=== PATIENT | female | born 1975 | race Caucasian/White ===

== ENCOUNTER 2018-10-24 18:08 | Emergency (ER) | payer MEDICARE, OTHER ==
[~2018-10-24] VITALS: Ht 167.6 cm; Wt 84.4 kg
--- NOTE | 2018-10-24 19:03 | ED Integumentary General ---
General Chief Complaint: Skin/Wound Problems Stated Complaint: LT SHOULDER SORE Nursing Triage Note: LEFT UPPER SHOULDER PIMPLE AREA FROM A TATTOO A COUPLE OF WEEKS AGO. PT CHAMGED FROM DOXY TO BACTRIM TODAY PER THE CLINIC AND MRSA COMING BACK ON THE WOUND CULTURE. Source: patient History of Present Illness Date Seen by Provider: Oct 24, 2018 Time Seen by Provider: 18:19 Initial Comments 43-year-old female presenting with complaints of swelling and tenderness to a sore on her left anterior shoulder. She had been seen by her clinic doctor for this already and was on doxycycline initially for it. She received a call today being told that it was MRSA and they switched her to Bactrim. She's had one dose of that. However her bra strap continues to rub on this area and irritate it. It is scratching it and making it bleed. She had a small amount of drainage from it and it is making it more irritated. Due to the pain and the drainage as well as being told that it was MRSA, she was concerned that it might need to be opened or drained. Allergies and Home Medications Allergies Coded Allergies: Penicillins (Verified Allergy, Unknown, 10/24/18) Home Medications Mupirocin 22 Gm Oint...g., 1 GM TP BID apply small amount to wound on shoulder twice a day for 10 days to treat for MRSA. Prescribed by: LALO PORRAS on 10/24/181905 Tramadol HCl 50 Mg Tablet, 50 MG PO Q6H PRN for PAIN-SEVERE Prescribed by: LALO PORRAS on 10/24/181905 Patient Home Medication List Home Medication List Reviewed: Yes Review of Systems Review of Systems Constitutional: No chills, No diaphoresis, No fever EENTM: no symptoms reported Respiratory: no symptoms reported Cardiovascular: no symptoms reported Gastrointestinal: no symptoms reported Genitourinary: no symptoms reported Musculoskeletal: other (pain around the left shoulder over the infection is located on the skin) Skin: see HPI Psychiatric/Neurological: No Symptoms Reported Past Sidvbpr-Qskigy-Vcwziz Hx Past Med/Social Hx: Reviewed Nursing Past Med/Soc Hx Patient Social History Alcohol Use: Denies Use Recreational Drug Use: No Smoking Status: Current Everyday Smoker Type Used: Cigarettes 2nd Hand Smoke Exposure: Yes Recent Foreign Travel: No Contact w/Someone Who Travel: No Recent Infectious Disease Expo: No Recent Hopitalizations: No Physical Abuse: No Sexual Abuse: No Mistreated: No Fear: No Seasonal Allergies Seasonal Allergies: No Past Medical History Orthopedic, Tubal Ligation Respiratory: Yes Asthma Cardiac: No Neurological: No Female Reproductive Disorders: Menstrual Problems [employer] History: Tubal Ligation Genitourinary: No Gastrointestinal: No Musculoskeletal: No Endocrine: No HEENT: No Cancer: No Psychosocial: Yes Anxiety Integumentary: No Blood Disorders: Yes (ANEMIA) Physical Exam Vital Signs Vital Signs - First Documented 10/24/18 10/24/18 18:20 19:16 Temp 99.0 Pulse 90 Resp 18 B/P (MAP) 123/86 (98) Pulse Ox 99 O2 Delivery Room Air Capillary Refill : Less Than 3 Seconds General Appearance: WD/WN, no apparent distress Neck: non-tender, full range of motion, supple, normal inspection Neurologic/Psychiatric: alert, normal mood/affect, oriented x 3 Skin: warm/dry, tattoos/piercings Skin Problem Location: upper extremities (left anterior shoulder) Skin Problem Character: erythema, lesion, tenderness (red irritated sore that has an open spot from being rubbed against her bra strap that looks like it might have a pustular appearance to it) Progress/Results/Core Measures Results/Orders Vital Signs/I&O 10/24/18 10/24/18 18:20 19:16 Temp 99.0 Pulse 90 86 Resp 18 B/P (MAP) 123/86 (98) 114/79 (91) Pulse Ox 99 98 O2 Delivery Room Air Room Air Blood Pressure Mean: 98 Progress Progress Note : Progress Note Using a 22-gauge needle attempted to aspirate from the pustular appearing sore on her left anterior shoulder, but was unsuccessful in obtaining any purulent material. a small core was removed from the center of the lesion though. Will treat with Bactroban and have her continue the Bactrim orally. Follow up with her primary provider for continued concerns. Departure Impression Primary Impression: Cellulitis due to MRSA Disposition: HOME, SELF-CARE Condition: Stable Departure-Patient Inst. Decision time for Depature: 18:58 Referrals: NO,LOCAL PHYSICIAN (PCP) Primary Care Physician Patient Instructions: Methicillin-Resistant Staphylococcus aureus (MRSA), Cellulitis (Skin Infection), Adult (DC) Add. Discharge Instructions: Continue on Bactrim DS antibiotic for the MRSA infection on your left shoulder. Use the Bactroban ointment to help the sore heal as well. You may use the pain medicine for severe pain as needed for the next couple of days until the antibiotics have a chance to kick in and start helping better. Follow up with your regular provider for continued concerns or if not improving. All discharge instructions reviewed with patient and/or family. Voiced understanding. Scripts Tramadol HCl (Tramadol HCl) 50 Mg Tablet 50 MG PO Q6H PRN for PAIN-SEVERE for 3 Days, #12 TAB 0 Refills Prov: LALO PORRAS MD 10/24/18 Mupirocin (Mupirocin) 22 Gm Oint...g. 1 GM TP BID for mrsa for 10 Days, #1 TUBE 0 Refills apply small amount to wound on shoulder twice a day for 10 days to treat for MRSA. Prov: LALO PORRAS MD 10/24/18 LALO PORRAS MD Oct 24, 2018 19:02
[2018-10-24] MEDS ORDERED: TRAM50TA2 PO (19:06)
[2018-10-24] MEDS ORDERED: MUPI22OI2 TP (19:06)
[2018-10-24 19:16] VITALS: BP 114/79
== END 2018-10-24 19:18 | disposition home or self-care (01) ==
LOC: ER FS 18:10
DX: L03.114 Cellulitis of left upper limb (principal); B95.62 Methicillin resistant Staphylococcus aureus infection as the cause of diseases classified elsewhere; J45.909 Unspecified asthma, uncomplicated; F41.9 Anxiety disorder, unspecified; F17.210 Nicotine dependence, cigarettes, uncomplicated; Z88.0 Allergy status to penicillin; Z98.51 Tubal ligation status
CPT/HCPCS: 10060